=== PATIENT | male | born 1995 | race Caucasian/White ===

== ENCOUNTER 2016-05-08 21:46 | Inpatient (IN) | payer MEDICAID, OTHER ==
[~2016-05-08] VITALS: Ht 180.3 cm; Wt 131.5 kg
[2016-05-08] MEDS ORDERED: OMEP40CA2 PO (22:25)
[2016-05-08] MEDS ORDERED: DIVA500T3 (22:25)
[2016-05-08] MEDS ORDERED: IBUP600T26 PO (22:25)
[2016-05-08] MEDS ORDERED: BUPR75TA5 PO (22:25)
[2016-05-08] MEDS ORDERED: TRAZ150T14 PO (22:25)
[2016-05-08] MEDS ORDERED: DIVA250T7 (22:25)
[2016-05-08 22:30] LABS: MEAN CORPUSCULAR HEMOGLOBIN 29.8 pg (27.0-33.0); MEAN CORPUSCULAR HGB CONC 36.2 g/dl (32.0-36.5); MEAN CORPUSCULAR VOLUME 82.2 fl (80.0-96.0); RED CELL DISTRIBUTION WIDTH 12.3 % (11.5-14.5); WHITE BLOOD COUNT 9.1 K/mm3 (4.0-10.0)
[2016-05-08 22:40] LABS: METHADONE URINE NEGATIVE (NEGATIVE)
[2016-05-08] MEDS ORDERED: NS 1,000 ML IV ONE (22:45)
[2016-05-08 22:47] LABS: ALBUMIN 4.2 GM/DL (3.2-5.2); ALBUMIN/GLOBULIN RATIO 0.88 (1.00-1.93); ALKALINE PHOSPHATASE 99 U/L (45-117); ALT/SGPT 68 U/L (12-78); ANION GAP 19 MEQ/L (8-16); AST/SGOT 30 U/L (15-37); BILIRUBIN,DIRECT 0.1 MG/DL (0.0-0.2); BILIRUBIN,TOTAL 0.5 MG/DL (0.2-1.0); BLOOD UREA NITROGEN 15 MG/DL (7-18); CALCIUM LEVEL 9.3 MG/DL (8.5-10.1); CARBON DIOXIDE LEVEL 21 MEQ/L (21-32); CHLORIDE LEVEL 92 MEQ/L (98-107); CREATININE FOR GFR 0.85 MG/DL (0.70-1.30); GLOMERULAR FILTRATION RATE > 60.0 (>60); POTASSIUM SERUM 4.1 MEQ/L (3.5-5.1); SODIUM LEVEL 132 MEQ/L (136-145)
[2016-05-08 22:50] LABS: GLUCOSE, FASTING 457 MG/DL (70-105)
[2016-05-08] MEDS ORDERED: HumuLIN R (REGULAR) INSULIN (NovoLIN R) **100U/ML** PER UNIT SC STA (23:41)
[2016-05-09] MEDS ORDERED: HumuLIN R (REGULAR) INSULIN (NovoLIN R) **100U/ML** PER UNIT IV ONE ×2 (02:00→04:15)
--- NOTE | 2016-05-09 07:27 | ECGEPIP ---
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
[2016-05-09] MEDS ORDERED: ONDANSETRON 4 MG TAB (S0181) PO ONE (09:15)
[2016-05-09 09:17] LABS: VENOUS O2 SATURATION 97.9 % (60.0-80.0); VENOUS PARTIAL PRESSURE CO2 41.6 mmHg (38.0-50.0); VENOUS PARTIAL PRESSURE O2 108.6 mmHg (30.0-50.0); VENOUS STANDARD HCO3 22.8 MEQ/L; VENOUS TOTAL CO2 24.5 MEQ/L (24.0-28.0)
[2016-05-09] MEDS ORDERED: DIVA250T7 PO (09:25)
[2016-05-09] MEDS ORDERED: DIVA500T3 PO (09:25)
[2016-05-09] MEDS ORDERED: ALBU17IN INH (09:26)
[2016-05-09 10:16] LABS: ANION GAP 13 MEQ/L (8-16); BLOOD UREA NITROGEN 15 MG/DL (7-18); CALCIUM LEVEL 9.7 MG/DL (8.5-10.1); CARBON DIOXIDE LEVEL 26 MEQ/L (21-32); CHLORIDE LEVEL 100 MEQ/L (98-107); CREATININE FOR GFR 0.92 MG/DL (0.70-1.30); GLOMERULAR FILTRATION RATE > 60.0 (>60); GLUCOSE, FASTING 308 MG/DL (70-105); POTASSIUM SERUM 4.7 MEQ/L (3.5-5.1); SODIUM LEVEL 139 MEQ/L (136-145)
--- NOTE | 2016-05-09 10:28 | ED PDOC ---
Post-Departure Follow-Up patient signed out to me medically clear pending psychiatry evaluation. Dr. Kan face to face evaluated patient and discussed with dad and recommended D/C home given hyperglycemia Hb A1c perfomed 10.3 d/w patient's PCP, jaqueline Hummel who requested metformin 500mg and will follow up as an outpatient and adjust dosing as appropriate Henrietta Perry MD May 09, 2016 10:28
[2016-05-09] MEDS ORDERED: METF500T PO (13:09)
[2016-05-09] MEDS ORDERED: GLUCTES VI ×2 (13:10→13:11)
[2016-05-09 13:30] VITALS: BP 139/82
== END 2016-05-09 14:30 | disposition home or self-care (01) | DRG 885 ==
LOC: M ED 22:50 → M ED INP 05-09 06:42
PROVIDERS: ADMIT Psychiatry & Neurology Psychiatry; ATTEND Psychiatry & Neurology Child & Adolescent Psychiatry
DX: F29 Unspecified psychosis not due to a substance or known physiological condition (principal); R73.9 Hyperglycemia, unspecified

== ENCOUNTER → 2016-08-01 | Outpatient (REF) | payer MEDICAID ==
[~2016-08-01] MED LIST: ALBU17IN INH; BUPR75TA5 PO; DIVA250T7; DIVA250T7 PO; DIVA500T3; DIVA500T3 PO; GLUCTES VI; IBUP600T26 PO; METF500T PO; OMEP40CA2 PO; TRAZ150T14 PO
[2016-08-01 19:05] LABS: ALBUMIN 4.2 GM/DL (3.2-5.2); ALBUMIN/GLOBULIN RATIO 1.02 (1.00-1.93); ALKALINE PHOSPHATASE 70 U/L (45-117); ALT/SGPT 70 U/L (12-78); ANION GAP 7 MEQ/L (8-16); AST/SGOT 36 U/L (15-37); BILIRUBIN,TOTAL 0.7 MG/DL (0.2-1.0); BLOOD UREA NITROGEN 12 MG/DL (7-18); CALCIUM LEVEL 9.5 MG/DL (8.5-10.1); CARBON DIOXIDE LEVEL 27 MEQ/L (21-32); CHLORIDE LEVEL 104 MEQ/L (98-107); CHOLESTEROL LEVEL 203 MG/DL (<200); CREATININE FOR GFR 0.55 MG/DL (0.70-1.30); GLOMERULAR FILTRATION RATE > 60.0 (>60); GLUCOSE, FASTING 107 MG/DL (70-105); POTASSIUM SERUM 4.4 MEQ/L (3.5-5.1); SODIUM LEVEL 138 MEQ/L (136-145); TOTAL PROTEIN 8.3 GM/DL (6.4-8.2); TRIGLYCERIDES LEVEL 199 MG/DL (<150)
== END ==
LOC: M LAB REF 16:44
PROVIDERS: ATTEND Family Medicine Addiction Medicine
DX: E11.9 Type 2 diabetes mellitus without complications (principal)

== ENCOUNTER → 2016-10-18 | Outpatient (CLI) | payer OTHER ==
[~2016-10-18] MED LIST changes: +CLON0.3T PO; +GLIP1TAB51 PO; +IBUP-1022 PO; -IBUP600T26 PO; +LITH300C PO; -METF500T PO; +METF500T13 PO; +NAPR500T PO; +ROBA500T PO; -TRAZ150T14 PO; +TRAZ1TAB14 PO
== END ==
LOC: M LAB 12:18
PROVIDERS: ATTEND Registered Nurse Psychiatric/Mental Health
DX: F31.9 Bipolar disorder, unspecified (principal)

== ENCOUNTER → 2016-11-14 | Outpatient (CLI) | payer OTHER ==
[2016-11-14 13:36] LABS: ALBUMIN 4.1 GM/DL (3.2-5.2); ALBUMIN/GLOBULIN RATIO 1.05 (1.00-1.93); ALKALINE PHOSPHATASE 65 U/L (45-117); ALT/SGPT 65 U/L (12-78); ANION GAP 12 MEQ/L (8-16); AST/SGOT 30 U/L (15-37); BILIRUBIN,TOTAL 0.6 MG/DL (0.2-1.0); BLOOD UREA NITROGEN 9 MG/DL (7-18); CALCIUM LEVEL 9.8 MG/DL (8.5-10.1); CARBON DIOXIDE LEVEL 25 MEQ/L (21-32); CHLORIDE LEVEL 105 MEQ/L (98-107); CHOLESTEROL LEVEL 194 MG/DL (<200); CREATININE FOR GFR 0.62 MG/DL (0.70-1.30); GLOMERULAR FILTRATION RATE > 60.0 (>60); GLUCOSE, FASTING 118 MG/DL (70-105); POTASSIUM SERUM 4.6 MEQ/L (3.5-5.1); SODIUM LEVEL 142 MEQ/L (136-145); TRIGLYCERIDES LEVEL 269 MG/DL (<150)
== END ==
LOC: M LAB 11:35
PROVIDERS: ATTEND Family Medicine Addiction Medicine
DX: E11.9 Type 2 diabetes mellitus without complications (principal)

== ENCOUNTER → 2016-11-14 | Outpatient (CLI) | payer OTHER | LOC: M LAB 11:32 | PROVIDERS: ATTEND Registered Nurse Psychiatric/Mental Health | DX: F31.9 Bipolar disorder, unspecified (principal) ==

== ENCOUNTER 2016-12-23 11:25 | Emergency (ER) | payer OTHER ==
[~2016-12-23] VITALS: Ht 180.3 cm; Wt 132.7 kg
[~2016-12-23 11:25] MED LIST changes: -CLON0.3T PO; -GLIP1TAB51 PO; -LITH300C PO; -NAPR500T PO; -ROBA500T PO
[2016-12-23] MEDS ORDERED: CLON0.3T PO (11:36)
[2016-12-23] MEDS ORDERED: GLIP1TAB51 PO (11:36)
[2016-12-23] MEDS ORDERED: LITH300C PO (11:36)
[2016-12-23] MEDS ORDERED: KETOROLAC 60 MG/2 ML VIAL (J1885) IM ONE (12:45)
[2016-12-23] MEDS ORDERED: METHOCARBAMOL 750 MG TAB PO ONE (12:45)
[2016-12-23] MEDS ORDERED: METHOCARBAMOL 500 MG TAB PO ONE (12:45)
[2016-12-23] MEDS ORDERED: NAPR500T PO (12:47)
[2016-12-23] MEDS ORDERED: ROBA500T PO (12:47)
[2016-12-23 12:54] VITALS: BP 147/74
== END 2016-12-23 13:05 | disposition home or self-care (01) ==
LOC: M ED 11:25
DX: M54.31 Sciatica, right side (principal); W10.9XXA Fall (on) (from) unspecified stairs and steps, initial encounter; F41.9 Anxiety disorder, unspecified; F32.9 Major depressive disorder, single episode, unspecified; J45.909 Unspecified asthma, uncomplicated; F79 Unspecified intellectual disabilities; Z79.84 Long term (current) use of oral hypoglycemic drugs; Z79.899 Other long term (current) drug therapy
CPT/HCPCS: 96372; 99283; J1885

== ENCOUNTER → 2016-12-23 | Outpatient (CLI) | payer OTHER | LOC: M LAB 10:39 | PROVIDERS: ATTEND Registered Nurse Psychiatric/Mental Health | DX: F31.9 Bipolar disorder, unspecified (principal) ==

== ENCOUNTER 2017-01-09 13:44 | Emergency (ER) | payer OTHER ==
[~2017-01-09] VITALS: Ht 180.3 cm; Wt 13.4 kg
[~2017-01-09 13:44] MED LIST changes: +CLON0.3T PO; +GLIP1TAB51 PO; +LITH300C PO; +NAPR500T PO; +ROBA500T PO
[2017-01-09] MEDS ORDERED: KETOROLAC 60 MG/2 ML VIAL (J1885) IM ONE (15:00)
[2017-01-09] MEDS ORDERED: CYCLOBENZAPRINE 10 MG TAB PO ONE (15:45)
--- NOTE | 2017-01-09 16:00 | REP ---
THORACIC SPINE, THREE VIEWS: HISTORY: Trauma. There is no acute fracture or subluxation. The intervertebral discs are normal in height. IMPRESSION:There is no acute fracture or subluxation. Signed by Caleb Winslow MD 01/09/2017 04:34 P
--- NOTE | 2017-01-09 16:01 | REP ---
LUMBAR SPINE, FIVE VIEWS: There is no fracture or subluxation. The intervertebral discs are normal in height. The facet joints are normal in appearance. IMPRESSION: There is no acute fracture or subluxation. Signed by Caleb Winslow MD 01/09/2017 04:34 P
[2017-01-09] MEDS ORDERED: IBUP80TA PO (16:06)
[2017-01-09] MEDS ORDERED: CYCL10TA PO (16:07)
[2017-01-09 16:20] VITALS: BP 142/78
== END 2017-01-09 16:22 | disposition home or self-care (01) ==
LOC: M ED 13:44
DX: M54.5 Low back pain (principal); W01.0XXA Fall on same level from slipping, tripping and stumbling without subsequent striking against object, initial encounter; Y92.9 Unspecified place or not applicable; Y93.9 Activity, unspecified; Y99.9 Unspecified external cause status; Z86.59 Personal history of other mental and behavioral disorders; F70 Mild intellectual disabilities; Z79.84 Long term (current) use of oral hypoglycemic drugs; Z79.899 Other long term (current) drug therapy
CPT/HCPCS: 72072; 72110; 96372; 99283; J1885

== ENCOUNTER 2017-02-04 03:29 | Emergency (ER) | payer OTHER | END 2017-02-04 05:35 | disposition home or self-care (01) | LOC: M ED 03:29 | DX: Z63.8 Other specified problems related to primary support group (principal); F31.9 Bipolar disorder, unspecified; Z79.899 Other long term (current) drug therapy | CPT/HCPCS: 99284 ==

== ENCOUNTER 2017-05-14 17:12 | Emergency (ER) | payer OTHER ==
[2017-05-14 17:43] LABS: BEDSIDE GLUCOSE 352 MG/DL (70-105)
[2017-05-14] MEDS: NS 1,000 ML IV (17:45)
[2017-05-14 18:03] LABS: APPEARANCE, URINE CLEAR (CLEAR); BACTERIA, URINE AUTO NEGATIVE (NEGATIVE); BILIRUBIN, URINE AUTO NEGATIVE (NEGATIVE); BLOOD, URINE BLOOD NEGATIVE (NEGATIVE); COLOR, URINE STRAW (YELLOW); GLUCOSE, URINE (UA) AUTO 3+ mg/dL (NEGATIVE); KETONE, URINE AUTO TRACE mg/dL (NEGATIVE); LEUKOCYTE ESTERASE, URINE AUTO NEGATIVE (NEGATIVE); MUCUS, URINE SMALL (NEGATIVE); NITRITE, URINE AUTO NEGATIVE (NEGATIVE); PROTEIN, URINE AUTO NEGATIVE (NEGATIVE); RBC, URINE AUTO 1 /HPF (0-3); SPECIFIC GRAVITY URINE AUTO 1.026 (1.002-1.035); SQUAMOUS EPITHELIAL CELL UR AU 0 /HPF (0-6); UROBILINOGEN, URINE AUTO 0.2 mg/dL (0.0-2.0); WBC, URINE AUTO 0 /HPF (0-3)
[2017-05-14 18:20] LABS: BASO # 0.1 10^3/uL (0.0-0.2); BASO % 0.7 % (0.0-1.0); EOS # 0.2 10^3/uL (0.0-0.50); EOS % 2.6 % (0.0-3.0); HEMATOCRIT 44.8 % (42.0-52.0); HEMOGLOBIN 15.9 g/dl (13.5-17.5); IMMATURE GRANULOCYTE % 0.5 % (0-3.0); LYMPH # 3.3 10^3/uL (1.5-6.5); LYMPH % 35.3 % (24.0-44.0); MEAN CORPUSCULAR HEMOGLOBIN 29.2 pg (27.0-33.0); MEAN CORPUSCULAR HGB CONC 35.5 g/dl (32.0-36.5); MEAN CORPUSCULAR VOLUME 82.2 fl (80.0-96.0); MONO # 0.7 10^3/uL (0.0-0.8); MONO % 7.6 % (0.0-5.0); NEUTROPHILS # 4.9 10^3/uL (1.8-7.7); NEUTROPHILS % 53.3 % (36.0-66.0); RED BLOOD COUNT 5.45 10^6/uL (4.30-6.10); RED CELL DISTRIBUTION WIDTH 11.9 % (11.5-14.5); VENOUS BASE EXCESS 1.1 (-2.0-2.0); VENOUS HCO3 27.7 MEQ/L (23.0-27.0); VENOUS O2 SATURATION 69.2 % (60.0-80.0); VENOUS PARTIAL PRESSURE CO2 51.4 mmHg (38.0-50.0); VENOUS STANDARD HCO3 24.7 MEQ/L; VENOUS TOTAL CO2 29.3 MEQ/L (24.0-28.0); WHITE BLOOD COUNT 9.2 10^3/uL (4.0-10.0)
[2017-05-14 18:48] LABS: ESTIMATED AVERAGE GLUCOSE 186 MG/DL (60-110); HEMOGLOBIN A1c 8.1 %
[2017-05-14 18:54] LABS: ALBUMIN 4.4 GM/DL (3.2-5.2); ALBUMIN/GLOBULIN RATIO 0.98 (1.00-1.93); ALKALINE PHOSPHATASE 88 U/L (45-117); ALT/SGPT 149 U/L (12-78); AMYLASE 25 U/L (25-115); ANION GAP 8 MEQ/L (8-16); AST/SGOT 91 U/L (7-37); BILIRUBIN,DIRECT 0.2 MG/DL (0.0-0.2); BILIRUBIN,TOTAL 0.5 MG/DL (0.2-1.0); BLOOD UREA NITROGEN 14 MG/DL (7-18); CALCIUM LEVEL 9.9 MG/DL (8.5-10.1); CARBON DIOXIDE LEVEL 27 MEQ/L (21-32); CHLORIDE LEVEL 100 MEQ/L (98-107); CREATININE FOR GFR 0.67 MG/DL (0.70-1.30); GLOMERULAR FILTRATION RATE > 60.0 (>60); GLUCOSE, FASTING 326 MG/DL (70-100); LIPASE 120 U/L (73-393); POTASSIUM SERUM 4.8 MEQ/L (3.5-5.1); SODIUM LEVEL 135 MEQ/L (136-145); TOTAL PROTEIN 8.9 GM/DL (6.4-8.2)
[2017-05-14 18:57] LABS: ADD MORPHOLOGY? YES; POS COUNT POS FLAG
[2017-05-14 19:00] LABS: PLATELET CLUMPS SMALL AMT
[2017-05-14 19:01] LABS: PLATELET ESTIMATE INVALID (NORMAL)
[2017-05-14] MEDS: HumuLIN R (REGULAR) INSULIN (NovoLIN R) **100U/ML** PER UNIT IV (19:58)
[2017-05-14 20:32] LABS: BEDSIDE GLUCOSE 267 MG/DL (70-105)
== END 2017-05-14 20:31 | disposition home or self-care (01) ==
LOC: M ED 17:12
DX: E11.65 Type 2 diabetes mellitus with hyperglycemia (principal); R94.5 Abnormal results of liver function studies; J45.909 Unspecified asthma, uncomplicated; F90.9 Attention-deficit hyperactivity disorder, unspecified type; F31.9 Bipolar disorder, unspecified; K21.9 Gastro-esophageal reflux disease without esophagitis; Z79.899 Other long term (current) drug therapy; Z91.018 Allergy to other foods
CPT/HCPCS: 82150

== ENCOUNTER 2017-12-25 21:57 | Emergency (ER) | payer OTHER | END 2017-12-25 23:12 | disposition home or self-care (01) | LOC: M ED 21:57 | DX: S89.91XA Unspecified injury of right lower leg, initial encounter (principal); V43.52XA Car driver injured in collision with other type car in traffic accident, initial encounter; Y92.410 Unspecified street and highway as the place of occurrence of the external cause; Y93.9 Activity, unspecified; Y99.9 Unspecified external cause status; E11.9 Type 2 diabetes mellitus without complications; Z79.84 Long term (current) use of oral hypoglycemic drugs; Z79.899 Other long term (current) drug therapy; Z91.018 Allergy to other foods | CPT/HCPCS: 99284 ==

== ENCOUNTER 2018-03-24 11:18 | Emergency (ER) | payer OTHER ==
[~2018-03-24] VITALS: Ht 175.3 cm; Wt 129.1 kg
[~2018-03-24 11:18] MED LIST changes: +CYCL10TA PO; -DIVA500T3; -DIVA500T3 PO; +DIVA500T94; +DIVA500T94 PO; +GLIP10TA18 PO; -GLIP1TAB51 PO; +GLIP5TAB20 PO; +IBUP80TA PO; +LISI10TA4 PO; +METF10004 PO; +NAPR-50 PO; -NAPR500T PO; +ZYPR2.5T2 PO
[2018-03-24] MEDS ORDERED: OLAN7.5T (11:26)
[2018-03-24] MEDS ORDERED: LISI-538 (11:26)
[2018-03-24] MEDS ORDERED: NS 1,000 ML IV ONE (11:45)
[2018-03-24 12:05] LABS: BASO % 0.4 % (0.0-1.0); EOS # 0.2 10^3/uL (0.0-0.50); EOS % 1.9 % (0.0-3.0); HEMATOCRIT 43.9 % (42.0-52.0); HEMOGLOBIN 15.6 g/dl (13.5-17.5); LYMPH # 3.4 10^3/uL (1.5-6.5); LYMPH % 32.8 % (24.0-44.0); MEAN CORPUSCULAR HEMOGLOBIN 29.3 pg (27.0-33.0); MEAN CORPUSCULAR HGB CONC 35.5 g/dl (32.0-36.5); MEAN CORPUSCULAR VOLUME 82.5 fl (80.0-96.0); MONO # 0.6 10^3/uL (0.0-0.8); MONO % 5.9 % (0.0-5.0); NEUTROPHILS # 6.1 10^3/uL (1.8-7.7); NEUTROPHILS % 58.5 % (36.0-66.0); PLATELET COUNT, AUTOMATED 307 10^3/uL (150-450); RED BLOOD COUNT 5.32 10^6/uL (4.30-6.10); WHITE BLOOD COUNT 10.4 10^3/uL (4.0-10.0)
[2018-03-24 12:35] LABS: ALBUMIN 4.5 GM/DL (3.2-5.2); ALT/SGPT 140 U/L (12-78); BILIRUBIN,DIRECT 0.1 MG/DL (0.0-0.2); BILIRUBIN,TOTAL 0.4 MG/DL (0.2-1.0); BLOOD UREA NITROGEN 10 MG/DL (7-18); CALCIUM LEVEL 10.1 MG/DL (8.5-10.1); CARBON DIOXIDE LEVEL 25 MEQ/L (21-32); CHLORIDE LEVEL 100 MEQ/L (98-107); CREATININE FOR GFR 0.67 MG/DL (0.70-1.30); GLOMERULAR FILTRATION RATE > 60.0 (>60); GLUCOSE, FASTING 142 MG/DL (70-100); LIPASE 111 U/L (73-393); POTASSIUM SERUM 4.8 MEQ/L (3.5-5.1); SODIUM LEVEL 135 MEQ/L (136-145); TOTAL PROTEIN 8.7 GM/DL (6.4-8.2)
[2018-03-24] MEDS ORDERED: ISOVUE-370 76% 100ML VIAL (Q9967) As Ordered ONE (13:33)
--- NOTE | 2018-03-24 14:39 | REP ---
CT of the abdomen and pelvis with IV contrast: There are no comparisons. The visualized lung sanchez are unremarkable. The hepatic parenchyma is hypodense compatible with hepato steatosis. There are no hepatic masses. The gallbladder, pancreas and spleen are unremarkable. The adrenals and kidneys are unremarkable. Abdominal aorta is unremarkable. Bowel and mesentery are unremarkable. Pelvis: The appendix is unremarkable. There is no ascites or adenopathy. The bladder is unremarkable. Impression: Hepato steatosis. Otherwise, negative CT of the abdomen and pelvis. Electronically Signed by Geoff Camejo MD 03/24/2018 02:30 P
[2018-03-24] MEDS ORDERED: GI COCKTAIL 50ML BTL(HYOSCYAMINE/MAALOX/LIDOCAINE VISCOUS)(1:3:1) PO ONE (15:00)
[2018-03-24 15:15] VITALS: BP 131/81
== END 2018-03-24 15:48 | disposition home or self-care (01) ==
LOC: M ED 11:18
DX: K76.0 Fatty (change of) liver, not elsewhere classified (principal); R74.8 Abnormal levels of other serum enzymes
CPT/HCPCS: 74177; 80048; 80076; 81001; 83690; 85025; 99284; Q9967